=== PATIENT | female | born 1985 | race American Indian/Alaskan Native ===

== ENCOUNTER 2016-08-21 14:16 | Emergency (ER) | payer MEDICAID ==
[2016-08-21 15:10] VITALS: BP 132/90
== END 2016-08-21 16:15 | disposition left against medical advice (07) ==
LOC: ED 14:16
DX: O26.899 Other specified pregnancy related conditions, unspecified trimester (principal); M79.1 Myalgia; Z53.21 Procedure and treatment not carried out due to patient leaving prior to being seen by health care provider; Z3A.00 Weeks of gestation of pregnancy not specified

== ENCOUNTER 2016-08-27 09:31 | Emergency (ER) | payer MEDICAID ==
[2016-08-27 10:15] VITALS: BP 143/96
--- NOTE | 2016-08-27 10:15 | Emergency Department Report ---
Stated Complaint: /ABD CRAMPING Time Seen by Provider: 08/27/16 10:11 - HPI History of Present Illness: Patient reports abdominal cramping with vaginal spotting that started three days ago. LMP 07/25/16. G5, A2, P2 - ROS Review of Systems: all other systems are unremarkable except for documentation in HPI - Exam Physical Exam: Gen: well developed and nourished, NAD Abd: soft, bowel sounds present, non-distended, suprapubic tenderness with palpation, no rebound, guarding or rigid MSE screening note: Focused history and physical exam performed. Due to findings the following was ordered: laboratory and radiology studies ordered ED Disposition for MSE Condition: Stable
[2016-08-27 10:41] LABS: Basophils % (Auto) 0.9 % (0.0-1.8); Eosinophils % (Auto) 1.9 % (0.0-4.3); Hematocrit 35.6 % (30.3-42.9); Hemoglobin 11.2 gm/dl (10.1-14.3); Mean Corpuscular HGB Conc 32 % (30-34); Mean Corpuscular Volume 76 fl (79-97); Platelet Count 231 K/mm3 (140-440); Red Blood Count 4.71 M/mm3 (3.65-5.03); Red Cell Distribution Width 13.1 % (13.2-15.2); White Blood Count 7.8 K/mm3 (4.5-11.0)
[2016-08-27 10:54] LABS: Alanine Aminotransferase 13 units/L (7-56); Albumin 3.8 g/dL (3.9-5); Albumin/Globulin Ratio 1.3 %; Alkaline Phosphatase 59 units/L (35-129); Anion Gap 15 mmol/L; Bilirubin,Total 0.2 mg/dL (0.1-1.2); Blood Urea Nitrogen 9 mg/dL (7-17); Calcium 8.5 mg/dL (8.4-10.2); Carbon Dioxide 24 mmol/L (22-30); Chloride 103.9 mmol/L (98-107); Glucose 109 mg/dL (65-100); Potassium 3.8 mmol/L (3.6-5.0); Sodium 139 mmol/L (137-145); Total Protein 6.8 g/dL (6.3-8.2)
[2016-08-27 11:37] LABS: Mean Corpuscular Hemoglobin 24 pg (28-32)
--- NOTE | 2016-08-27 12:35 | Ultrasound Report ---
Pelvic and transvaginal sonography: History: Vaginal spotting, abdominal cramping. Findings: Uterus measures 9.1 x 6.2 x 7.6 cm. Endometrial thickness 15.5 mm. Minimal fluid is noted in the endometrium. No gestational sac is identified. Nabothian cysts are noted in the cervix. Right ovary 5.2 x 3.8 x 3.7 cm. Complex cyst in the right ovary measures 3.1 cm. Left ovary 2.4 x 1.8 x 1.5 cm. Complex cyst in the left ovary measures 1.1 cm Impression: No intrauterine gestational sac. Findings as detailed above.
--- NOTE | 2016-08-28 20:11 | ED Elopement Review ---
ED Pt Elopement review - Results review Lab results: Laboratory Tests 08/27/16 08/27/16 08/27/16 10:23 10:23 10:23 WBC 7.8 RBC 4.71 Hgb 11.2 Hct 35.6 MCV 76 L MCH 24 L MCHC 32 RDW 13.1 L Plt Count 231 Lymph % (Auto) 27.0 Eagle % (Auto) 7.4 H Eos % (Auto) 1.9 Baso % (Auto) 0.9 Lymph # 2.1 Eagle # 0.6 Eos # 0.1 Baso # 0.1 Seg Neutrophils % 62.8 Seg Neutrophils # 4.9 Sodium 139 Potassium 3.8 Chloride 103.9 Carbon Dioxide 24 Anion Gap 15 BUN 9 Creatinine 0.6 L Estimated GFR > 60 BUN/Creatinine Ratio 15.00 Glucose 109 H Calcium 8.5 Total Bilirubin 0.2 AST 9 ALT 13 Alkaline Phosphatase 59 Total Protein 6.8 Albumin 3.8 L Albumin/Globulin Ratio 1.3 HCG, Quant 553.7 H Blood Type Ord Rhogam Gestat Weeks 08/27/16 10:23 WBC RBC Hgb Hct MCV MCH MCHC RDW Plt Count Lymph % (Auto) Eagle % (Auto) Eos % (Auto) Baso % (Auto) Lymph # Eagle # Eos # Baso # Seg Neutrophils % Seg Neutrophils # Sodium Potassium Chloride Carbon Dioxide Anion Gap BUN Creatinine Estimated GFR BUN/Creatinine Ratio Glucose Calcium Total Bilirubin AST ALT Alkaline Phosphatase Total Protein Albumin Albumin/Globulin Ratio HCG, Quant Blood Type O POSITIVE Ord Rhogam Gestat Weeks Rh pos - Call Back decision Pt Call Back Decision: Pt to F/U with PMD (you need to follow up with [facility] in the next 1-2 days for repeat hCG and ultrasound. There is no in the uterus. This either could represent an ectopic or an early . )
== END 2016-08-27 19:10 | disposition left against medical advice (07) ==
LOC: ED 09:31
DX: O26.851 Spotting complicating pregnancy, first trimester (principal); R10.9 Unspecified abdominal pain; Z3A.01 Less than 8 weeks gestation of pregnancy; Z53.21 Procedure and treatment not carried out due to patient leaving prior to being seen by health care provider
CPT/HCPCS: 36415; 76801; 76817; 80053; 84702; 85025; 86900; 86901

== ENCOUNTER 2018-01-11 11:45 | Emergency (ER) | payer MEDICAID ==
--- NOTE | 2018-01-11 12:12 | Emergency Department Report ---
ED ENT HPI - General Chief complaint: Sore Throat Stated complaint: SORE THROAT Time Seen by Provider: 01/11/18 11:54 Source: patient Mode of arrival: Ambulatory Limitations: No Limitations - History of Present Illness Initial comments: Patient cardiovascular female who presents for bilateral ear pain and sinus congestion and sore throat 3 days . Patient's daughter diagnosed with a AOM and pharyngitis 3 days ago symptoms include sorethroat ear pain post nasal drip with fever pt has not attempted otc pain or uri medications. MD complaint: sore throat, ear pain Onset/Timin -: days(s) Location: R ear, L ear, throat Severity: moderate Severity scale (0 -10): 4 Quality: aching, sharp Consistency: constant Improves with: none Worsens with: swallowing, movement Associated Symptoms: fever, pain with swallowing, sore throat, tinnitus, rhinorrhea - Related Data Previous Rx's Medication Instructions Recorded Last Taken Type Amoxicillin 500 mg PO TID #30 capsule 01/11/18 Unknown Rx Benzocaine/Menth/Cetylpyrd 8 each MM Q2HR PRN #3 packet 01/11/18 Unknown Rx [Cepacol X Strength] Ibuprofen 800 mg PO TID PRN #30 tablet 01/11/18 Unknown Rx Allergies Allergy/AdvReac Type Severity Reaction Status Date / Time sulfamethoxazole Allergy Hives Verified 06/11/16 14:52 [From Bactrim] trimethoprim [From Bactrim] Allergy Hives Verified 06/11/16 14:52 ED Dental HPI - General Chief complaint: Sore Throat Stated complaint: SORE THROAT Time Seen by Provider: 01/11/18 11:54 Source: patient Mode of arrival: Ambulatory Limitations: No Limitations - Related Data Previous Rx's Medication Instructions Recorded Last Taken Type Amoxicillin 500 mg PO TID #30 capsule 01/11/18 Unknown Rx Benzocaine/Menth/Cetylpyrd 8 each MM Q2HR PRN #3 packet 01/11/18 Unknown Rx [Cepacol X Strength] Ibuprofen 800 mg PO TID PRN #30 tablet 01/11/18 Unknown Rx Allergies Allergy/AdvReac Type Severity Reaction Status Date / Time sulfamethoxazole Allergy Hives Verified 06/11/16 14:52 [From Bactrim] trimethoprim [From Bactrim] Allergy Hives Verified 06/11/16 14:52 ED Review of Systems ROS: Stated complaint: SORE THROAT Other details as noted in HPI Constitutional: chills, fever ENT: ear pain, throat pain, congestion Respiratory: denies: cough, shortness of breath, wheezing Cardiovascular: denies: chest pain, palpitations Endocrine: no symptoms reported Gastrointestinal: denies: abdominal pain, nausea, diarrhea Genitourinary: denies: urgency, dysuria, discharge Musculoskeletal: denies: back pain, joint swelling, arthralgia Skin: denies: rash, lesions Neurological: denies: headache, weakness, paresthesias Psychiatric: denies: anxiety, depression Hematological/Lymphatic: denies: easy bleeding, easy bruising ED Past Medical Hx - Past Medical History Previous Medical History?: No - Surgical History Past Surgical History?: No - Social History Smoking Status: Current Every Day Smoker Substance Use Type: None - Medications Home Medications: Home Medications Medication Instructions Recorded Confirmed Last Taken Type Amoxicillin 500 mg PO TID #30 capsule 01/11/18 Unknown Rx Benzocaine/Menth/Cetylpyrd 8 each MM Q2HR PRN #3 packet 01/11/18 Unknown Rx [Cepacol X Strength] Ibuprofen 800 mg PO TID PRN #30 tablet 01/11/18 Unknown Rx ED Physical Exam - General Limitations: No Limitations General appearance: alert, in no apparent distress - Head Head exam: Present: atraumatic, normocephalic - Eye Eye exam: Present: normal appearance - ENT ENT exam: Present: mucous membranes moist - Expanded ENT Exam Expanded TM/Canal exam: Erythema: Right TM, Left TM, Effusion: Right TM Throat exam: Positive: tonsillar erythema, tonsillomegaly, tonsillar exudate. Negative: R peritonsillar mass, L peritonsillar mass - Neck Neck exam: Present: normal inspection, full ROM. Absent: tenderness, lymphadenopathy, thyromegaly - Respiratory Respiratory exam: Present: normal lung sounds bilaterally. Absent: respiratory distress - Cardiovascular Cardiovascular Exam: Present: regular rate, normal rhythm. Absent: systolic murmur, diastolic murmur, rubs, gallop - GI/Abdominal GI/Abdominal exam: Present: soft, normal bowel sounds - Rectal Rectal exam: Present: deferred - Extremities Exam Extremities exam: Present: normal inspection - Back Exam Back exam: Present: normal inspection - Neurological Exam Neurological exam: Present: alert, oriented X3 - Psychiatric Psychiatric exam: Present: normal affect, normal mood - Skin Skin exam: Present: warm, dry, intact, normal color. Absent: rash ED Course Vital Signs 01/11/18 11:49 Temperature 98.8 F Pulse Rate 103 H Respiratory 16 Rate Blood Pressure 128/79 O2 Sat by Pulse 98 Oximetry ED Medical Decision Making - Medical Decision Making this is straight forward URI, AOM, with pharyngitis, will tx with amoxicillin, pt will obtain ibuprofen flonase, cepacol , and follow up with [facility] in 2-3 days pt verbalized agreement and understanding of discharge plan. Critical care attestation.: If time is entered above; I have spent that time in minutes in the direct care of this critically ill patient, excluding procedure time. ED Disposition Clinical Impression: AOM (acute otitis media) Qualifiers: Otitis media type: serous Laterality: right Recurrence: not specified as recurrent Qualified Code(s): H65.01 - Acute serous otitis media, right ear Pharyngitis Qualifiers: Pharyngitis/tonsillitis etiology: unspecified etiology Qualified Code(s): J02.9 - Acute pharyngitis, unspecified URI (upper respiratory infection) Qualifiers: URI type: acute pharyngitis Pharyngitis/tonsillitis etiology: unspecified etiology Qualified Code(s): J02.9 - Acute pharyngitis, unspecified Disposition: - TO HOME OR SELFCARE Is pt being admited?: No Does the pt Need Aspirin: No Condition: Good Instructions: Otitis Media (ED), Pharyngitis (ED) Prescriptions: Amoxicillin 500 mg PO TID #30 capsule Benzocaine/Menth/Cetylpyrd [Cepacol X Strength] 8 each MM Q2HR PRN #3 packet PRN Reason: throat pain Ibuprofen 800 mg PO TID PRN #30 tablet PRN Reason: pain fever Referrals: PRIMARY CARE,MD [Primary Care Provider] - 3-5 Days Forms: Work/School Release Form(ED) Time of Disposition: 12:18
[2018-01-11 12:28] VITALS: BP 126/72
== END 2018-01-11 12:27 | disposition home or self-care (01) ==
LOC: ED 11:45
DX: J02.9 Acute pharyngitis, unspecified (principal); H65.01 Acute serous otitis media, right ear; Z88.2 Allergy status to sulfonamides; F17.200 Nicotine dependence, unspecified, uncomplicated
CPT/HCPCS: 99282

== ENCOUNTER 2018-02-11 12:25 | Emergency (ER) | payer MEDICAID ==
[2018-02-11 12:30] VITALS: BP 147/71
--- NOTE | 2018-02-11 14:06 | Emergency Department Report ---
- General Chief Complaint: Upper Respiratory Infection Stated Complaint: EAR AND RUNNY NOSE Time Seen by Provider: 02/11/18 13:26 Source: patient Mode of arrival: Ambulatory Limitations: No Limitations - History of Present Illness Initial Comments: This is a 32-year-old female nontoxic, well nourished in appearance, no acute signs of distress presents to the ED with c/o of right ear pain, frontal sinus pain, rhinorrhea nasal congestion 2 days. Patient denies any cough or sick contacts. Patient denies any recent travels, long car, recent hospital stays. Patient denies any calf pain or calf tenderness. Patient denies any chest pain , short of breath, fever, chills, nausea, vomiting, hemoptysis, numbness, tingling, headache or stiff neck. Patient states allergies to Bactrim. MD Complaint: rhinorrhea, nasal congestion, sinus pain, other (ear pain) -: days(s) (2) Severity: mild Severity scale (0 -10): 8 Quality: aching Consistency: constant Improves With: nothing Worsens With: nothing Associated Symptoms: headache (frontal sinus pain), rhinorrhea, nasal congestion , ear pain. denies: fever, chills, myalgias, diaphoresis, sore throat, stiff neck, cough, chest pain, shortness of breath, abdominal pain, nausea, vomiting, diarrhea, dysuria, rash, confusion, right sweats, weight loss, epistaxis, hoarseness Treatments Prior to Arrival: none - Related Data Previous Rx's Medication Instructions Recorded Last Taken Type Amoxicillin 500 mg PO TID #30 capsule 01/11/18 Unknown Rx Benzocaine/Menth/Cetylpyrd 8 each MM Q2HR PRN #3 packet 01/11/18 Unknown Rx [Cepacol X Strength] Ibuprofen 800 mg PO TID PRN #30 tablet 01/11/18 Unknown Rx Amoxicillin/K Clav Tab [Augmentin 1 tab PO Q12HR #20 tab 02/11/18 Unknown Rx 875 mg] Ibuprofen [Motrin] 600 mg PO Q8H PRN #30 tablet 02/11/18 Unknown Rx Allergies Allergy/AdvReac Type Severity Reaction Status Date / Time sulfamethoxazole Allergy Hives Verified 02/11/18 12:29 [From Bactrim] trimethoprim [From Bactrim] Allergy Hives Verified 07/08/18 12:29 ED Review of Systems ROS: Stated complaint: EAR AND RUNNY NOSE Other details as noted in HPI Constitutional: denies: chills, fever Eyes: denies: eye pain, eye discharge, vision change ENT: ear pain. denies: throat pain Respiratory: denies: cough, shortness of breath, wheezing Cardiovascular: denies: chest pain, palpitations Endocrine: no symptoms reported Gastrointestinal: denies: abdominal pain, nausea, diarrhea Genitourinary: denies: urgency, dysuria, discharge Musculoskeletal: denies: back pain, joint swelling, arthralgia Skin: denies: rash, lesions Neurological: denies: headache, weakness, paresthesias Psychiatric: denies: anxiety, depression Hematological/Lymphatic: denies: easy bleeding, easy bruising ED Past Medical Hx - Past Medical History Previous Medical History?: No - Surgical History Past Surgical History?: No - Social History Smoking Status: Current Every Day Smoker Substance Use Type: None - Medications Home Medications: Home Medications Medication Instructions Recorded Confirmed Last Taken Type Amoxicillin 500 mg PO TID #30 capsule 01/11/18 Unknown Rx Benzocaine/Menth/Cetylpyrd 8 each MM Q2HR PRN #3 packet 01/11/18 Unknown Rx [Cepacol X Strength] Ibuprofen 800 mg PO TID PRN #30 tablet 01/11/18 Unknown Rx Amoxicillin/K Clav Tab [Augmentin 1 tab PO Q12HR #20 tab 02/11/18 Unknown Rx 875 mg] Ibuprofen [Motrin] 600 mg PO Q8H PRN #30 tablet 02/11/18 Unknown Rx ED Physical Exam - General Limitations: No Limitations General appearance: alert, in no apparent distress - Head Head exam: Present: atraumatic, normocephalic - Eye Eye exam: Present: normal appearance Pupils: Present: normal accommodation - ENT ENT exam: Present: normal orophraynx, mucous membranes moist, normal external ear exam - Expanded ENT Exam Expanded TM/Canal exam: Erythema: Right TM, Bulging: Right TM Mouth exam: Present: normal external inspection Teeth exam: Present: normal inspection Throat exam: Positive: normal inspection. Negative: tonsillar erythema, tonsillomegaly, tonsillar exudate, R peritonsillar mass, L peritonsillar mass - Neck Neck exam: Present: normal inspection, full ROM. Absent: tenderness, meningismus, lymphadenopathy - Respiratory Respiratory exam: Present: normal lung sounds bilaterally. Absent: respiratory distress, wheezes, rales, rhonchi, stridor, chest wall tenderness, accessory muscle use, decreased breath sounds, prolonged expiratory - Cardiovascular Cardiovascular Exam: Present: regular rate, normal rhythm, normal heart sounds. Absent: irregular rhythm, systolic murmur, diastolic murmur, rubs, gallop - GI/Abdominal GI/Abdominal exam: Present: soft, normal bowel sounds - Extremities Exam Extremities exam: Present: normal inspection, full ROM, normal capillary refill - Back Exam Back exam: Present: normal inspection, full ROM - Neurological Exam Neurological exam: Present: alert, oriented X3, CN II-XII intact, normal gait - Psychiatric Psychiatric exam: Present: normal affect, normal mood - Skin Skin exam: Present: warm, dry, intact, normal color. Absent: rash - Other Other exam information: Frontal sinus tenderness ED Course Vital Signs 02/11/18 12:29 Temperature 98.5 F Pulse Rate 80 Respiratory 20 Rate Blood Pressure 147/71 O2 Sat by Pulse 100 Oximetry - Reevaluation(s) Reevaluation #1: 02/11/18 14:04 Patient is speaking in full sentences with no signs of distress noted. ED Medical Decision Making - Medical Decision Making This is a 32-year-old female that presents with otitis media and sinusitis. Patient is stable and was examined by me. Due to patient having symptoms of upper respiratory infection and symptoms of influenza and worsening I will treat patient empirically with Augmentin. Patient was instructed to increase hydration, rest and take Motrin for fever episodes. Vitals stable. Patient is nonfebrile and normal heart rate. Patient was instructed Follow-up with a primary care doctor in 3-5 days or if symptoms worsen and continue return to emergency room as soon as possible. At time time of discharge, the patient does not seem toxic or ill in appearance. No acute signs of distress noted. Patient agrees to discharge treatment plan of care. No further questions noted by the patient. Critical care attestation.: If time is entered above; I have spent that time in minutes in the direct care of this critically ill patient, excluding procedure time. ED Disposition Clinical Impression: Sinusitis Qualifiers: Sinusitis location: frontal Chronicity: acute Recurrence: non-recurrent Qualified Code(s): J01.10 - Acute frontal sinusitis, unspecified Right otitis media Qualifiers: Otitis media type: unspecified Qualified Code(s): H66.91 - Otitis media, unspecified, right ear Disposition: DC-01 TO HOME OR SELFCARE Is pt being admited?: No Does the pt Need Aspirin: No Condition: Stable Instructions: Sinusitis (ED), Otitis Media (ED) Additional Instructions: Follow-up with a primary care doctor in 3-5 days or if symptoms worsen and continue return to emergency room as soon as possible. Prescriptions: Amoxicillin/K Clav Tab [Augmentin 875 mg] 1 tab PO Q12HR #20 tab Ibuprofen [Motrin] 600 mg PO Q8H PRN #30 tablet PRN Reason: Pain Referrals: PRIMARY CARE, [Primary Care Provider] - 3-5 Days ELIAN CHAVES MD [Staff Physician] - 3-5 Days [facility] [Outside] - 3-5 Days [facility] [Outside] - 3-5 Days Forms: Work/School Release Form(ED)
== END 2018-02-11 15:07 | disposition home or self-care (01) ==
LOC: ED 12:25
DX: H66.91 Otitis media, unspecified, right ear (principal); J01.10 Acute frontal sinusitis, unspecified; F17.200 Nicotine dependence, unspecified, uncomplicated; Z88.1 Allergy status to other antibiotic agents; Z88.2 Allergy status to sulfonamides
CPT/HCPCS: 99281